=== PATIENT | female | born 1970 | race Caucasian/White ===

== ENCOUNTER → 2016-09-07 | Outpatient (REF) | payer BC | LOC: M SFHCLERA 15:15 | PROVIDERS: ATTEND Nurse Practitioner Family | DX: J02.9 Acute pharyngitis, unspecified (principal) ==

== ENCOUNTER → 2016-12-23 | Outpatient (REF) | payer BC | LOC: M SFHCLERA 18:39 | PROVIDERS: ATTEND Nurse Practitioner Family | DX: R39.15 Urgency of urination (principal) ==

== ENCOUNTER → 2018-06-10 | Outpatient (REF) | payer BC | LOC: M LAB REF 10:12 | DX: R39.15 Urgency of urination (principal) | CPT/HCPCS: 87086 ==

== ENCOUNTER → 2022-06-17 | Outpatient (REF) | payer BC, OTHER | LOC: M SFHCDERM 12:36 | PROVIDERS: ATTEND Nurse Practitioner Family | DX: D23.30 Other benign neoplasm of skin of unspecified part of face (principal) ==